=== PATIENT | male | born 1950 | race Caucasian/White ===

== ENCOUNTER 2021-03-14 07:57 | Outpatient (CLI) | payer MEDICARE, SELFPAY ==
--- NOTE | ~2021-03-14 | NM_ITS ---
EXAMINATION: NM bone scan whole body DATE: 03/14/2021 12:17 INDICATION: Elevated PSA level TECHNIQUE: 26.6 mCi Tc-99m HDP was administered intravenously. Delayed whole-body scintigrams were o btained. COMPARISON: CT abdomen and pelvis dated 04/24/18 There are no more recent relevant imaging studies at o institution. FINDINGS: Moderate increased uptake associated with the anterior left fourth and fifth ribs which given the: Lo calization suggests healing fractures. Mild degenerative joint centered uptake at the medial compartm ent of the bilateral knees, at the bilateral acromioclavicular and sternoclavicular joints. Atypical focus of increased uptake at the posterior right upper chest in the region of the posterior right sec ond rib and superomedial tip of the right scapula. More subtle shape region of increased uptake proje cting over the immediately adjacent right side of the upper thoracic spine. IMPRESSION: 1. Indeterminate pattern of increased uptake at the posterior right upper chest. Recommend further ev aluation with either radiographs of the right upper chest/ribs or CT. 2. Moderate increased uptake at the anteriormost left fourth and fifth ribs likely related to prior r ib fractures. Reviewed, dictated and finalized at location A. IMPRESSION: 1. Indeterminate pattern of increased uptake at the posterior right upper chest . Recommend further evaluation with either radiographs of the right upper chest /ribs or CT. 2. Moderate increased uptake at the anteriormost left fourth and fifth ribs lik kashif related to prior rib fractures.
== END 2021-03-14 07:58 | disposition home or self-care (01) ==
PROVIDERS: PCP Internal Medicine; Visit Provider Internal Medicine
DX: R97.20 Elevated prostate specific antigen [PSA] (principal); R91.8 Other nonspecific abnormal finding of lung field
CPT/HCPCS: 78306; A9561

== ENCOUNTER 2021-03-26 09:52 | Outpatient (CLI) | payer MEDICARE, SELFPAY ==
--- NOTE | ~2021-03-26 | CT_ITS ---
EXAMINATION: CT shoulder RT wo con DATE: 03/26/2021 10:20 INDICATION: Right shoulder pain. Elevated PSA. TECHNIQUE: Computed tomography (CT) of the right shoulder was performed without intravenous contrast. Automated exposure control and iterative reconstruction technique were employed. The dose-length pro duct was 176.84 mGy-cm. COMPARISON: Bone scan 03/14/2021 FINDINGS: There is mild emphysema. There is a cavitary mass in right lung upper lobe with chest wall invasion and erosions of the T2 and T3 vertebral bodies and posterior elements and right third and fo urth ribs. The mass measures 8.6 x 4.7 cm. There is mild osteoarthritis of right glenohumeral joint a nd right acromioclavicular joint. Partially visualized is ectasia of ascending aorta. Calcified right hilar lymph nodes are consistent with old granulomatous disease. IMPRESSION: 1. 8.6 x 4.7 cm mass in right lung upper lobe with spine and rib involvement, consistent with primary bronchogenic carcinoma. I called this result to Dr. Snell. Reviewed, dictated and finalized at location A. IMPRESSION: 1. 8.6 x 4.7 cm mass in right lung upper lobe with spine and rib involvement, c onsistent with primary bronchogenic carcinoma. I called this result to Dr. Dwight mahajan
== END 2021-03-26 09:53 | disposition home or self-care (01) ==
PROVIDERS: PCP Internal Medicine; Visit Provider Internal Medicine
DX: R97.20 Elevated prostate specific antigen [PSA] (principal)
CPT/HCPCS: 73200

== ENCOUNTER 2021-03-27 08:08 | Outpatient (CLI) | payer MEDICARE, SELFPAY ==
--- NOTE | 2021-04-07 16:36 | WPDPFTINT ---
PFT Procedure Performed PFT Procedure Performed Plethysmography (Lung Vol) Diffusing Cap (DLCO) Flow Vol Loop Spirometry w/o Bronchodil PFT Interpretation This is a pulmonary function test with spirometry, plethysmography and diffusing capacity. The test was performed and results interpreted in accordance with the 2019 and 2005 ATS/ERS Task Force guidelines respectively using the Global Lung Function Initiative-2012 reference equations. Patient demonstrated good effort and cooperation. Reproducibility criteria were met. The quality of the spirometry maneuver was Grade B. Findings: Spirometry: There is decreased maximal expiratory airflow at low lung volumes with a concave expiratory flow tracing. The contour of the inspiratory flow tracing is normal. The FVC is 4.03 L, 91% predicted. The FEV1 is 2.50 L, 75% predicted. The FEV1: FVC ratio 62%. Plethysmography: The total lung capacity is 8.84 L, 123% predicted. The functional residual capacity is 4.22 L, 110% predicted. The residual volume is 4.18 L, 169% predicted. Diffusing capacity: The absolute diffusion capacity is 11.3, 42% predicted. The diffusing capacity corrected for alveolar volume is 2.55, 65% predicted. Impression: There is a mild obstructive abnormality with a normal FEV1. The increase in residual volume is consistent with air trapping from an obstructive abnormality. Hyperinflation is present is demonstrated by the increase in total lung capacity and is consistent with an obstructive abnormality. The absolute diffusing capacity is moderately decreased and remains mildly decreased when corrected for alveolar volume. There are no prior studies for comparison
== END 2021-03-27 08:09 | disposition home or self-care (01) ==
PROVIDERS: PCP Internal Medicine; Visit Provider Internal Medicine
DX: J44.9 Chronic obstructive pulmonary disease, unspecified (principal)
CPT/HCPCS: 94375; 94726; 94729

== ENCOUNTER 2021-04-02 13:37 | Outpatient (CLI) | payer MEDICARE, SELFPAY ==
--- NOTE | ~2021-04-02 | CT_ITS ---
EXAMINATION: CT diagnostic chest w con DATE: 04/02/2021 15:36 INDICATION: Right lung mass seen on recent CT examination. TECHNIQUE: Computed tomography (CT) of the chest was performed with 75 cc Omnipaque 350 intravenous c ontrast. The dose-length product was 168.67 mGy-cm. Automated exposure control and iterative reconstr uction technique were employed. COMPARISON: CT dated 03/26/2021 FINDINGS: There are is a right upper lobe mass measuring 4.7 cm AP x5.2 cm craniocaudal x6.5 cm trans verse with chest wall invasion and erosions of T2 and T3 vertebral bodies and posterior elements. The re is also invasion of the right third and fourth ribs with probable involvement of the right neural foramen. There is thoracic aortic aneurysm of the distal ascending aorta measuring 4.8 cm. That is po st median sternotomy for CABG. There are nonenlarged mediastinal lymph nodes, likely reactive. There is enlarged right hilar lymph node measuring 1.3 cm short axis, image 67. There is emphysema. There i s irregular pleural-based soft tissue right upper lobe laterally measuring 11 x 9 mm, image 62. Calci fied granuloma right middle lobe medially. 7 mm left lower lobe nodule, image 91. IMPRESSION: 1. Large right upper lobe mass concerning for bronchogenic carcinoma, with chest wall invasion. There is as involvement of T2 and T3 vertebral body and posterior elements as well as the right third and fourth ribs. Possible metastases to the right hilum, right upper lobe and left lower lobe. Recommend further evaluation with percutaneous biopsy and/or PET/CT examination. Reviewed, dictated and finalized at location A. IMPRESSION: 1. Large right upper lobe mass concerning for bronchogenic carcinoma, with ches t wall invasion. There is as involvement of T2 and T3 vertebral body and campaign manager ior elements as well as the right third and fourth ribs. Possible metastases to the right hilum, right upper lobe and left lower lobe. Recommend further evalu ation with percutaneous biopsy and/or PET/CT examination.
[2021-04-02 15:32] LABS: Estimated Glomerular Filt Rate > 60
== END 2021-04-02 13:38 | disposition home or self-care (01) ==
PROVIDERS: PCP Internal Medicine; Visit Provider Internal Medicine
DX: R91.8 Other nonspecific abnormal finding of lung field (principal)
CPT/HCPCS: 71260; Q9967

== ENCOUNTER 2021-04-15 09:26 | Outpatient (CLI) | payer MEDICARE, SELFPAY ==
[2021-04-08 15:53] VITALS: BMI 18.8
[2021-04-15] VITALS (9 sets, daily range): BP systolic 96–126; BP diastolic 53–75; PULSE 55–70; RESP 16–19; TEMP 36.6; O2SAT 98–100
--- NOTE | ~2021-04-15 | XR_ITS ---
EXAMINATION: XR chest 1V DATE: 04/15/2021 12:33 INDICATION: Right lung mass status post percutaneous biopsy. TECHNIQUE: A single frontal view of the chest was obtained. COMPARISON: Chest single view 01/12/2016 FINDINGS: There is a mass in right lung upper lobe with rib and vertebral body erosion. No pleural ef fusion or pneumothorax. There is mild atelectasis at the lung bases. The heart size is normal. Median sternotomy wires and mediastinal surgical clips are seen, likely from prior coronary artery bypass g rafting. There is ectasia of ascending aorta. IMPRESSION: 1. Mass in right lung upper lobe with chest wall invasion, consistent with primary bronchogenic carci noma. Reviewed, dictated and finalized at location A. IMPRESSION: 1. Mass in right lung upper lobe with chest wall invasion, consistent with prim salud bronchogenic carcinoma.
--- NOTE | ~2021-04-15 | CT_ITS ---
EXAMINATION: CT biopsy lung w/imaging DATE: 04/15/2021 12:05 INDICATION: Right lung upper lobe mass. TECHNIQUE: The procedure including the risks, benefits, and alternatives and possibility of chest tub e placement were discussed with the patient. Risks discussed included infection, hemorrhage, and pneu mothorax. The patient understood the risks and agreed to proceed. The patient was placed on his right side. The skin overlying the right posterior chest was prepped and draped in sterile fashion. Anes thetic was administered with 1% lidocaine subcutaneously. A 19 gauge outer needle was advanced under CT guidance to the lesion of interest. A 20 gauge core biopsy needle was then used to obtain 3 core biopsy specimens. The needle was removed and the entry site was cleaned and dressed. The mA was adjus elizabeth according to patient size. Iterative reconstruction technique was employed. The dose-length produ ct was 125.56 mGy-cm. There were no immediate complications. FINDINGS: CT images demonstrate the outer needle tip adjacent to an 8 cm mass in right lung upper lob e with chest wall invasion. IMPRESSION: 1. CT-guided core needle biopsy of a right lung upper lobe mass. Reviewed, dictated and finalized at location A.
--- NOTE | ~2021-04-15 | XR_ITS ---
EXAMINATION: XR chest 1V portable DATE: 04/15/2021 14:54 INDICATION: Right lung mass status post percutaneous biopsy. TECHNIQUE: A single frontal view of the chest was obtained. COMPARISON: Chest single view at 1:07 PM FINDINGS: There is a mass in right lung apex with erosions of rib and vertebral body. There is mild s carring at left lung apex. No pleural effusion or pneumothorax. The heart size is normal. Median ster notomy wires and mediastinal surgical clips are seen, likely from prior coronary artery bypass grafti ng. There is ectasia of ascending aorta. IMPRESSION: 1. Mass in right lung upper lobe with chest wall invasion, consistent with primary bronchial carcinom a. Reviewed, dictated and finalized at location A. IMPRESSION: 1. Mass in right lung upper lobe with chest wall invasion, consistent with prim salud bronchial carcinoma.
--- NOTE | ~2021-04-15 | XR_ITS ---
EXAMINATION: XR chest 1V portable DATE: 04/15/2021 13:10 INDICATION: Right lung mass status post percutaneous biopsy. TECHNIQUE: A single frontal view of the chest was obtained on 2 radiographs. COMPARISON: Chest single view at 12:04 PM FINDINGS: There is a mass in right lung upper lobe with rib and vertebral body erosion. There is mild scarring at left lung apex. No pleural effusion or pneumothorax. The heart size is normal. Median st ernotomy wires and mediastinal surgical clips are seen, likely from prior coronary artery bypass mari ting. There is ectasia of ascending aorta. IMPRESSION: 1. Mass in right lung upper lobe with chest wall invasion, consistent with primary bronchogenic carci noma. Reviewed, dictated and finalized at location A. IMPRESSION: 1. Mass in right lung upper lobe with chest wall invasion, consistent with prim salud bronchogenic carcinoma.
[2021-04-15 10:12] LABS: Basophils Absolute Auto 0.1 K/mm3 (0.0-0.1); Basophils Percent Auto 0.5 % (0.2-1.2); Eosinophils Absolute Auto 0.1 K/mm3 (0-0.3); Hematocrit 39.4 % (42.0-52.0); Immature Granulocyte Absolute 0.05 K/mm3 (0.00-0.031); Immature Granulocyte Percent A 0.4 % (0-0.5); Lymphocytes Absolute Auto 1.98 K/mm3 (0.9-3.2); Lymphocytes Percent Auto 14.8 % (18.3-44.2); Mean Corpuscular Hemoglobin 31.3 pg (26-34); Mean Corpuscular Volume 94.7 fl (80-100); Mean Platelet Volume 9.4 fl (7.4-10.4); Monocytes Absolute Auto 0.8 K/mm3 (0.1-0.6); Monocytes Percent Auto 5.9 % (2.6-8.5); Neutrophils Absolute Auto 10.3 K/mm3 (1.3-6.7); Neutrophils Percent Auto 77.4 % (45.5-73.1); Platelet Count Result 430 k/mm3 (150-375); Red Blood Count 4.16 M/mm3 (4.6-6.20); Red Cell Distribution Width 13.5 % (11.5-14.5); White Blood Count 13.3 K/mm3 (4.5-10.0)
[2021-04-15 10:21] LABS: Prothrombin Time 13.5 Seconds (11.1-14.7)
[2021-04-15] MEDS: HYDROcodone/acetaminophen (*CRX) 7.5-325 MG TABLET 2 TAB PO (13:20)
== END 2021-04-15 15:35 | disposition home or self-care (01) ==
PROVIDERS: Radiology Diagnostic Radiology; PCP Internal Medicine; Visit Provider Internal Medicine
DX: C34.91 Malignant neoplasm of unspecified part of right bronchus or lung (principal); R22.2 Localized swelling, mass and lump, trunk
CPT/HCPCS: 32408; 36415; 71045; 81210; 81235; 81275; 81276; 85025; 85610; 88271; 88274; 88305; 88342; 88360; 88381; A9270

== ENCOUNTER 2021-05-13 14:25 | Outpatient (CLI) | payer MEDICARE, SELFPAY ==
--- NOTE | ~2021-05-13 | CT_ITS ---
EXAMINATION: CT abdomen pelvis w con DATE: 05/13/2021 15:52 INDICATION: History of prostate and lung cancer. Osteoporosis.. TECHNIQUE: Computed tomography (CT) of the abdomen and pelvis was performed with 100 cc Omnipaque 350 intravenous contrast. The dose-length product was 241.27 mGy-cm. Automated exposure control and iter ative reconstruction technique were employed. COMPARISON: CT dated 04/24/2018. FINDINGS: There is emphysema in the lung bases. Dependent atelectasis. Cardiomegaly. No significant p leural or pericardial effusion. There are gallstones. Gallbladder is distended. Mild biliary dilatati on. No obstructing stone or mass identified. The spleen contains calcified granulomas. The pancreas, adrenal glands are unremarkable. There are bilateral renal cysts. There is large amount of retained f ecal material throughout the colon. Nonobstructive bowel gas pattern. No free air or free fluid. Mode rate diffuse atherosclerosis. No lymphadenopathy. Mild lumbar spondylosis. IMPRESSION: 1. Cholelithiasis with gallbladder distention and biliary dilatation. Consider cholecystitis in the a ppropriate clinical setting. 2: Fecal impaction of the colon. Reviewed, dictated and finalized at location A. IMPRESSION: 1. Cholelithiasis with gallbladder distention and biliary dilatation. Consider cholecystitis in the appropriate clinical setting. 2: Fecal impaction of the colon.
[2021-05-13 15:47] LABS: Estimated Glomerular Filt Rate > 60
[2021-05-13 16:27] LABS: Prostate Specific Antigen 7.7 ng/mL (< OR = 4.0)
[2021-05-17 11:41] LABS: Testosterone Total 9 ng/dL (250-1100)
== END 2021-05-13 14:26 | disposition home or self-care (01) ==
PROVIDERS: PCP Internal Medicine; Visit Provider Urology
DX: C61 Malignant neoplasm of prostate (principal); M81.0 Age-related osteoporosis without current pathological fracture; Z13.820 Encounter for screening for osteoporosis; K80.20 Calculus of gallbladder without cholecystitis without obstruction
CPT/HCPCS: 36415; 74177; 84153; 84403; Q9967